=== PATIENT | female | born 1950 ===

== ENCOUNTER → 2021-12-07 10:16 | Outpatient (BNVA) | payer MEDICARE, OTHER, SELFPAY | PROVIDERS: PCP Internal Medicine; Visit Provider Psychiatry & Neurology Neurology | DX: G25.0 Essential tremor (principal) | CPT/HCPCS: 99202 ==

== ENCOUNTER 2022-12-06 10:57 | Outpatient (AMB) | payer MEDICARE, OTHER, SELFPAY ==
[2022-12-06 10:59] VITALS: BP 124/62; PULSE 70; O2SAT 98; BMI 33.3
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
== END 2022-12-06 11:27 | disposition home or self-care (01) ==
PROVIDERS: Visit Provider Psychiatry & Neurology Neurology
DX: G25.0 Essential tremor (principal)
CPT/HCPCS: 99214

== ENCOUNTER → 2022-12-06 10:57 | Outpatient (BNVA) | payer MEDICARE, OTHER, SELFPAY | PROVIDERS: Visit Provider Psychiatry & Neurology Neurology | DX: G25.0 Essential tremor (principal) | CPT/HCPCS: 99212 ==

== ENCOUNTER 2023-12-10 10:02 | Outpatient (AMB) | payer MEDICARE, OTHER, SELFPAY ==
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
[2023-12-10 10:13] VITALS: BP 144/76; PULSE 94; RESP 16; O2SAT 96; BMI 34.7
== END 2023-12-10 11:02 | disposition home or self-care (01) ==
PROVIDERS: PCP Internal Medicine; Visit Provider Psychiatry & Neurology Neurology
DX: G25.0 Essential tremor (principal); R41.89 Other symptoms and signs involving cognitive functions and awareness; H02.401 Unspecified ptosis of right eyelid; M47.812 Spondylosis without myelopathy or radiculopathy, cervical region; Z86.69 Personal history of other diseases of the nervous system and sense organs
CPT/HCPCS: 99214; G2211

== ENCOUNTER → 2023-12-10 10:02 | Outpatient (BNVA) | payer MEDICARE, OTHER, SELFPAY | PROVIDERS: PCP Internal Medicine; Visit Provider Psychiatry & Neurology Neurology | DX: Z13.89 Encounter for screening for other disorder (principal) | CPT/HCPCS: 99212 ==

== ENCOUNTER 2023-12-10 11:05 | Outpatient (REF) | payer MEDICARE, OTHER, SELFPAY ==
[2023-12-10 17:37] LABS: MANUAL DIFF FLAG NO
[2023-12-10 18:14] LABS: Basophils Absolute Auto 0.1 X10*3/uL (0.0-0.2); Basophils Percent Auto 0.9 % (0-2); Eosinophils Absolute Auto 0.1 X10*3/uL (0.0-0.4); Eosinophils Percent Auto 1.5 % (0-4); Hematocrit 34.3 % (37.0-47.0); Hemoglobin 11.6 g/dl (12.0-16.0); Imm Gran Abs Auto 0.01 X10*3/uL (0.00-0.03); Imm Gran Pct Auto 0.1 % (0.0-0.4); Lymphocytes Absolute Auto 2.9 X10*3/uL (1.2-4.9); Lymphocytes Percent Auto 43.8 % (20-40); Mean Corpuscular HGB Conc 33.8 g/dl (31.0-35.0); Mean Corpuscular Hemoglobin 30.9 pg (27.0-33.0); Mean Corpuscular Volume 91.2 fL (80.0-98.0); Mean Platelet Volume 10.1 fL (9.4-12.3); Monocytes Absolute Auto 0.9 X10*3/uL (0.1-1.2); Monocytes Percent Auto 13.1 % (2-11); Neutrophils Absolute Auto 2.7 x10*3/uL (2.0-8.3); Neutrophils Percent Auto 40.6 % (45-73); Platelet Count 344 X10*3/uL (160-400); Red Blood Count 3.76 X10*6/uL (4.20-5.50); Red Cell Distribution Width 13.4 % (11.0-16.0); White Blood Count 6.7 X10*3/uL (4.8-10.8)
[2023-12-10 18:32] LABS: Alanine Aminotransferase 23 U/L (0-31); Albumin Level 4.4 g/dL (3.5-5.0); Alkaline Phosphatase 73 U/L (39-117); Anion Gap 13 (12-20); Aspartate Amino Transferase 21 U/L (5-31); Bilirubin Total 0.3 mg/dL (0.0-1.0); Blood Urea Nitrogen 18 mg/dL (9-16); Calcium 9.8 mg/dL (8.4-10.2); Carbon Dioxide 26 mmol/L (22-29); Chloride 103 mmol/L (96-108); Estimated Glomerular Filt Rate > 60; Glucose Random 101 mg/dL (60-115); Potassium 4.6 mmol/L (3.3-5.1); Sodium 137 mmol/L (135-145); Total Protein 7.3 g/dL (6.5-8.0)
[2023-12-10 18:35] LABS: TSH reflex Free T4 1.31 uIU/mL (0.32-4.0)
[2023-12-10 18:49] LABS: Folate 15.3 ng/mL (> or = 4.0); Vitamin B12 961 pg/mL (200-900)
[2023-12-10 19:07] LABS: Erythrocyte Sedimentation Rate 37 MM/HR (0-20)
[2023-12-19 14:53] LABS: Acetylcholine Recep Modulating 15
== END 2023-12-10 11:06 | disposition home or self-care (01) ==
LOC: HO.HKASLDS 11:05
PROVIDERS: Visit Provider Psychiatry & Neurology Neurology
DX: R41.89 Other symptoms and signs involving cognitive functions and awareness (principal); H02.409 Unspecified ptosis of unspecified eyelid; G25.0 Essential tremor; M47.812 Spondylosis without myelopathy or radiculopathy, cervical region
CPT/HCPCS: 36415; 80053; 82607; 82746; 84443; 85025; 85652; 86043; 99212

== ENCOUNTER 2024-06-29 09:16 | Outpatient (AMB) | payer MEDICARE, OTHER, SELFPAY ==
[2024-06-29 09:34] VITALS: BP 114/78; PULSE 83; O2SAT 99; BMI 33.9
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
== END 2024-06-29 10:02 | disposition home or self-care (01) ==
LOC: HO.HSMS 09:17
PROVIDERS: PCP Internal Medicine; Visit Provider Psychiatry & Neurology Neurology
DX: G25.0 Essential tremor (principal); R41.89 Other symptoms and signs involving cognitive functions and awareness; H02.401 Unspecified ptosis of right eyelid
CPT/HCPCS: 99214; G2211

== ENCOUNTER → 2024-06-29 09:16 | Outpatient (BNVA) | payer MEDICARE, OTHER, SELFPAY | PROVIDERS: PCP Internal Medicine; Visit Provider Psychiatry & Neurology Neurology | DX: R25.1 Tremor, unspecified (principal); R41.89 Other symptoms and signs involving cognitive functions and awareness; H02.401 Unspecified ptosis of right eyelid | CPT/HCPCS: 99212 ==